=== PATIENT | female | born 1995 | race Caucasian/White ===

== ENCOUNTER 2017-07-27 09:48 | Emergency (ER) | payer BC, OTHER ==
[~2017-07-27] VITALS: Ht 167.6 cm; Wt 56.0 kg
[~2017-07-27 09:48] MED LIST: AUGMENTIN600 MG/5 M PO; AZITHROMYCIN250 MG PO; LISINOPRIL5 MG PO; OMEPRAZOLE40 M1 PO; PHENERGAN-CODE120 ML PO; PREDNISONE20 MG PO; PROVENTIL,2.5 MG/0.5 AEROSOL; SYNTHROID50 MCG PO; lisinopril; omeprazole; synthroid
[2017-07-27] MEDS ORDERED: LEVOTHYROXINE75 MCG PO (10:19)
[2017-07-27] MEDS ORDERED: CELEXA20 MG PO (10:20)
[2017-07-27 11:17] LABS: BASOPHIL COUNT 0.1 K/uL (0-0.1); EOSINOPHIL (%) 2.2 % (0-5); EOSINOPHIL COUNT 0.1 K/uL (0-0.3); HEMATOCRIT 43.7 % (36.0-46.0); IMMATURE GRANULOCYTE (%) 0.4 % (0.0-0.7); INSTRUMENT ABS NEUTROPHIL CT 3.2 K/uL; LYMPHOCYTE COUNT 1.5 K/uL (1.0-2.8); MCH 28.8 PG (29.0-34.0); MCHC 31.6 G/DL (30.0-36.0); MEAN PLAT.VOLUME 9.9 uM^3 (9.5-12.4); MONOCYTE (%) 11.5 % (3-12); MONOCYTE COUNT 0.6 K/uL (0-0.8); NEUTROPHIL (%) 57.4 % (45-76); NEUTROPHIL COUNT 3.2 K/uL (1.8-6.4); PLATELET COUNT 260 K/uL (156-360); RBC DIS.WIDTH-CV 13.3 % (11.8-14.6); RBC DIS.WIDTH-SD 45.1 % (39-53); WHITE BLOOD COUNT 5.6 K/uL (4.1-10.2)
[2017-07-27 11:25] LABS: CHLORIDE 105 mEq/L (99-109); POTASSIUM 4.3 mEq/L (3.7-5.4)
[2017-07-27 11:26] LABS: SODIUM 141 mEq/L (136-147)
[2017-07-27 11:27] LABS: GLUCOSE 71 mg/dL (70-99)
[2017-07-27 11:29] LABS: ANION GAP 11 MEQ/L (2-14)
[2017-07-27 11:30] LABS: SERUM ETHYL ALCOHOL < 10 mg/dL
[2017-07-27 11:31] LABS: GFR ESTIMATE (CALCULATED) > 59 mL/min/
[2017-07-27 11:32] LABS: UREA NITROGEN (BUN) 12 mg/dL (9-23)
[2017-07-27 11:40] LABS: QUANTITATIVE HCG < 4.0 MIU/ML
[2017-07-27 12:48] VITALS: BP 110/60
== END 2017-07-27 12:49 | disposition home or self-care (01) ==
LOC: EME 09:48
PROVIDERS: Emergency Medicine
DX: F32.9 Major depressive disorder, single episode, unspecified (principal); F43.24 Adjustment disorder with disturbance of conduct; F72 Severe intellectual disabilities; Q90.9 Down syndrome, unspecified
CPT/HCPCS: 80048; 81003; 84702; 85025; 90839; 99281; 99284; G0480